=== PATIENT | male | born 1965 | race Caucasian/White ===

== ENCOUNTER 2019-05-10 07:58 | Outpatient (CLI) | payer OTHER ==
--- NOTE | 2019-05-10 10:11 | Ultrasound Report ---
Sonogram right upper quadrant: History: Liver ultrasound before patient starts on anti-rejection medication. Findings: Normal liver. No intrahepatic or extra hepatic duct dilatation. Common bile duct diameter 5.1 mm. Patient status post cholecystectomy. Right kidney 10 x 4.6 x 4.8 cm. Cortical thickness is 1.1 cm. Normal pancreas. Impression: Essentially negative sonogram right upper quadrant.
== END 2019-05-10 07:59 | disposition home or self-care (01) ==
LOC: US 07:58
PROVIDERS: ATTEND Specialist
DX: R94.5 Abnormal results of liver function studies (principal); Z90.49 Acquired absence of other specified parts of digestive tract
CPT/HCPCS: 76705